=== PATIENT | female | born 1955 | race Caucasian/White ===

== ENCOUNTER 2016-08-09 21:45 | Emergency (ER) | payer MEDICAID ==
[~2016-08-09] VITALS: Ht 157.5 cm; Wt 54.4 kg
[2016-08-09] MEDS ORDERED: OXYC30TA2 (22:14)
[2016-08-09] MEDS ORDERED: ALPR0.5T8 (22:14)
[2016-08-09] MEDS ORDERED: HYDR25TA4 (22:14)
[2016-08-09] MEDS ORDERED: BUPR8TAB4 (22:14)
[2016-08-09] MEDS ORDERED: SERT100T12 (22:14)
--- NOTE | 2016-08-09 22:19 | NUR ---
MEDICALLY CLEARED BY DR PARRISH
--- NOTE | 2016-08-09 22:20 | NUR ---
PT REQUESTING FOR SOMETHING FOR ANXIETY,NAUSEA AND CONSTIPATION. DR PARRISH AWARE
--- NOTE | 2016-08-09 22:21 | NUR ---
ARETHA SHELLEY FROM PET TEAM WILL JOSUÉ PT. ETA 1HR
[2016-08-09] MEDS ORDERED: MAGNESIUM HYDROXIDE 30 ML LIQUID UDC PO ONE (22:30)
[2016-08-09] MEDS ORDERED: ONDANSETRON ODT 4 MG TAB.RAPDIS SL ONE (22:30)
[2016-08-09] MEDS ORDERED: LORAZEPAM 0.5 MG TABLET PO ONE (22:30)
[2016-08-09] MEDS ORDERED: ONDANSETRON ODT 4 MG TAB.RAPDIS ONE (22:39)
[2016-08-09] MEDS ORDERED: LORAZEPAM 1 MG TABLET ONE (22:39)
[2016-08-09] MEDS ORDERED: MAGNESIUM HYDROXIDE 30 ML LIQUID UDC ONE (22:40)
[2016-08-09] MEDS ORDERED: MAGNESIUM CITRATE 296 ML BOTTLE PO ONE (23:45)
[2016-08-09] MEDS ORDERED: BISACODYL 10 MG SUPP.RECT RC ONE ×2 (23:45→23:55)
[2016-08-09] MEDS ORDERED: MAGNESIUM CITRATE 296 ML BOTTLE ONE (23:55)
--- NOTE | 2016-08-10 00:05 | NUR ---
PER PET TEAM,PATIENT DOES NOT MEET CRITERIA TO BE PLACED ON 5150 HOLD
--- NOTE | 2016-08-10 01:03 | NUR ---
Patient discharged to home in stable conditon WITH TAXI TAKING PT HOME. Written and verbal after care instructions given. Patient verbalizes understanding of instructions. WALKED OUT OF ER WITH STEADY GAIT
[2016-08-10 01:06] VITALS: BP 142/99
== END 2016-08-10 01:06 | disposition home or self-care (01) ==
LOC: ER 21:47
DX: G47.00 Insomnia, unspecified (principal); F41.9 Anxiety disorder, unspecified; G89.4 Chronic pain syndrome; F11.20 Opioid dependence, uncomplicated; K59.00 Constipation, unspecified; I10 Essential (primary) hypertension; F32.9 Major depressive disorder, single episode, unspecified; Z88.0 Allergy status to penicillin
CPT/HCPCS: A4663; Q0162